=== PATIENT | male | born 1970 | race Caucasian/White ===

== ENCOUNTER 2020-09-08 09:46 | Emergency (ER) | payer SELFPAY ==
--- NOTE | ~2020-09-08 | CT_ITS ---
EXAMINATION: CT brain wo con DATE: 09/08/2020 10:37 INDICATION: Right upper extremity pain and numbness. TECHNIQUE: Computed tomography (CT) of the head was performed without intravenous contrast. The mA wa s adjusted according to patient size. Iterative reconstruction technique was employed. The dose-lengt h product was 605.33 mGy-cm. COMPARISON: None FINDINGS: There is no intracranial hemorrhage, acute infarction, or abnormal intracranial mass lesion . The ventricles are normal in size. The orbits are normal. There is mild mucosal thickening in the e thmoid sinuses. There is a right otomastoid effusion. A defect in the frontal bone on the left may be an old carla hole. IMPRESSION: 1. Normal brain. 2. Right otomastoid effusion. Reviewed, dictated and finalized at location B.
--- NOTE | ~2020-09-08 | XR_ITS ---
EXAMINATION: XR chest 2V DATE: 09/08/2020 10:44 INDICATION: Right chest and back pain TECHNIQUE: PA and lateral views of the chest were obtained. COMPARISON: None FINDINGS: The lungs are clear with no focal airspace opacities, pulmonary edema, pleural effusion or pneumothor ax. The cardiomediastinal silhouette is normal. Mild thoracic spondylosis. Mild pectus excavatum. IMPRESSION: 1. No acute cardiopulmonary disease. Reviewed, dictated and finalized at location A.
--- NOTE | ~2020-09-08 | CT_ITS ---
EXAMINATION: CT cervical spine wo con DATE: 09/08/2020 10:38 INDICATION: Right upper extremity pain and numbness. TECHNIQUE: Computed tomography (CT) of the cervical spine was performed without intravenous contrast. Automated exposure control and iterative reconstruction technique were employed. The dose-length pro duct was 374.79 mGy-cm. COMPARISON: None FINDINGS: There is mild emphysema. There is 4 degrees dextrocurvature of cervical spine. There is hyp olordosis of cervical spine. Vertebral body heights are normal. There is moderately decreased disc he ight at C6-C7. The following disc levels are specifically discussed: C2-C3: There is no uncovertebral joint osteoarthritis. There is moderate bilateral facet joint osteoa rthritis. There is no neural foraminal stenosis. There is no central canal stenosis. C3-C4: There is no uncovertebral joint osteoarthritis. There is mild bilateral facet joint osteoarthr itis. There is no neural foraminal stenosis. There is no central canal stenosis. C4-C5: There is no uncovertebral joint osteoarthritis. There is moderate right and mild left facet aron int osteoarthritis. There is no neural foraminal stenosis. There is mild central canal stenosis. C5-C6: There is no uncovertebral joint osteoarthritis. There is mild bilateral facet joint osteoarthr itis. There is no neural foraminal stenosis. There is no central canal stenosis. C6-C7: There is moderate bilateral uncovertebral joint osteoarthritis. There is mild bilateral facet joint osteoarthritis. There is moderate bilateral neural foraminal stenosis. There is mild central ca nal stenosis. C7-T1: There is no uncovertebral joint osteoarthritis. There is mild bilateral facet joint osteoarthr itis. There is no neural foraminal stenosis. There is no central canal stenosis. IMPRESSION: 1. Moderate spondylosis at C6-C7 and mild spondylosis at other levels. Reviewed, dictated and finalized at location B.
[2020-09-08 09:52] VITALS: BP 132/83; PULSE 85; RESP 18; TEMP 36.6; O2SAT 100
--- NOTE | 2020-09-08 10:10 | ED.GENADULT ---
HPI - General Adult General Chief complaint: Unspecified Stated complaint: bump on face, right arm and shoulder numb Time Seen by Provider: 09/08/20 10:08 Source: patient and RN notes reviewed Mode of arrival: ambulatory Limitations: no limitations History of Present Illness HPI narrative: Patient is a 49 years old white male presented to the ED with a lump at the right side of lower mandible started 1 week ago, tender, red, no discharge. Gradually getting worse. Patient also complaining of intermittent pain, numbness and tingling of the right upper extremity. The pain also went to the right side of the back and wrapped around the front of his thigh. Currently only pain of the right upper extremity and right side of the back worse with certain movement. Patient denies any recent trauma. Patient is physically active most of the time and he could pulled some muscles somehow sometime in the last few weeks. The intermittent pain of the right upper extremity been going for the last 4 weeks patient denies any neck pain, fever, chills, nausea, vomiting, chest pain, shortness of breath or headache. Related Data Allergies Allergy/AdvReac Type Severity Reaction Status Date / Time No Known Allergies Allergy Verified 09/08/20 10:02 Review of Systems Review of Systems: Narrative: CONSTITUTIONAL: Denies fever, chills, or sweats. EYES: Denies visual changes, redness, or discharge. ENT: Denies rhinorrhea, congestion, sore throat, or otalgia. CARDIOVASCULAR: Denies chest pain, palpitations, or edema. RESPIRATORY: Denies cough or dyspnea. GASTROINTESTINAL: Denies abdominal pain, nausea, vomiting, or diarrhea. GENITOURINARY: Denies dysuria or hematuria. SKIN: Denies rash or itching. MUSCULOSKELETAL: Denies back pain, joint pain, or myalgia. NEUROLOGIC: Denies headache, numbness, or weakness. PSYCHIATRIC: Denies anxiety or depression. Exam Narrative: Exam Narrative: General appearance: Well-developed, well-nourished Skin: Normal color Head: Normocephalic, nontraumatic Eyes: Clear conjunctiva ENT: Oropharynx normal, ears normal, nose normal a 1-1/2 x 1 and half centimeter abscess right lower mandible, red, tender, fluctuant, no discharge Neck: Supple, nontender Chest and respiratory: Airway patent, no respiratory distress, no accessory muscle use Heart: Regular rate/rhythm Vascular: Normal peripheral pulses, normal capillary refill. Musculoskeletal: Diffuse tenderness of the back on the right side, no bruises, no swelling, no rash Neurologic: Alert and oriented ?3, STEM SIZER is normal as tested, no gross motor deficit Course Course Emergency Course: Stable Vital Signs Vital signs: Vital Signs Temperature 36.6 C 09/08/20 09:52 Pulse Rate 85 09/08/20 09:52 Respiratory Rate 18 09/08/20 09:52 Blood Pressure 132/83 09/08/20 09:52 Pulse Oximetry 100 09/08/20 09:52 Temperature 36.6 C 09/08/20 09:52 Pulse Rate 85 09/08/20 09:52 Respiratory Rate 18 09/08/20 09:52 Blood Pressure 132/83 09/08/20 09:52 Pulse Oximetry 100 09/08/20 09:52 Procedures Abscess I/D Right lower jaw: Date of Incision: 09/08/20 Time of Incision: 13:08 Side (if applicable): right Local Anesthetic: lidocaine 1% and with epi Amount of anesthesia used (mL): 2 Technique: incised with #11 blade and probed loculations Amount of fluid expressed (mL): 5 Irrigation: No Packing used?: iodoform I&D Results: Pus and Blood Complications: pain Medical Decision Making MDM Narrative Medical decision making narrative: Patient presents with abscess right mandible, also musculoskeletal versus cervical radiculopa
[2020-09-08 13:31] VITALS: BP 122/78; PULSE 78; RESP 18; O2SAT 99
== END 2020-09-08 13:33 | disposition home or self-care (01) ==
PROVIDERS: Emergency Provider Emergency Medicine
DX: M27.2 Inflammatory conditions of jaws (principal); M54.12 Radiculopathy, cervical region; M47.812 Spondylosis without myelopathy or radiculopathy, cervical region
CPT/HCPCS: 10061; 70450; 71046; 72125; 87070; 87205; 99284